=== PATIENT | male | born 1960 | race Caucasian/White ===

== ENCOUNTER 2016-08-01 07:38 | Outpatient (CLI) | payer OTHER ==
[2016-08-01] MEDS ORDERED: GADOBUTROL 10 MMOL/10 ML VIAL IVP ONE (08:31)
== END 2016-08-01 07:39 | disposition home or self-care (01) ==
DX: R26.89 Other abnormalities of gait and mobility (principal); Z91.81 History of falling
CPT/HCPCS: 70553; A9585

== ENCOUNTER 2017-12-28 14:48 | Emergency (ER) | payer OTHER ==
--- NOTE | 2017-12-28 15:21 | ED Physician Documentation ---
PD HPI ABD PAIN - Stated complaint Stated Complaint: RT LOWER BACK PAIN - Chief complaint Chief Complaint: General - History obtained from History obtained from: Patient - History of Present Illness Timing - onset: How many days ago (3) Timing - duration: Days (3) Timing - details: Gradual onset, Still present, Waxing and waning Quality: Aching, Sharp, Pain Location: RLQ Radiation: Other (right testicle area), Right flank Improved by: No: Eating, Position, Meds Worsened by: No: Eating, Position Associated symptoms: Nausea. No: Fever, Vomiting, Diarrhea, Constipation, Dysuria Similar symptoms before: Diagnosis (similar to kidney stones in the past (2-3 prior ones, each passed with meds only)) Recently seen: Not recently seen Review of Systems Constitutional: denies: Fever, Chills, Myalgias Nose: denies: Rhinorrhea / runny nose, Congestion Throat: denies: Sore throat Cardiac: denies: Chest pain / pressure Respiratory: denies: Cough GI: reports: Abdominal Pain, Nausea. denies: Constipation, Diarrhea : reports: Hematuria (few days ago for just that day). denies: Dysuria, Frequency Skin: denies: Rash, Lesions PD PAST MEDICAL HISTORY - Past Medical History Cardiovascular: None Respiratory: None Neuro: None Endocrine/Autoimmune: None : Kidney stones - Present Medications Home Medications: Ambulatory Orders Medication Instructions Recorded Confirmed Dexamethasone [Decadron] 4 mg PO DAILY #5 tablet 12/28/17 Naproxen [Naprosyn] 500 mg PO BID PRN #20 tablet 12/28/17 Ondansetron Odt [Zofran] 4 mg TL Q6H PRN #15 tablet 12/28/17 Oseltamivir [Tamiflu] 75 mg PO BID #10 capsule 12/28/17 Oxycodone HCl/Acetaminophen 1 each PO Q6H PRN #20 tablet 12/28/17 [Percocet 5-325 mg Tablet] - Allergies Allergies/Adverse Reactions: Allergies Allergy/AdvReac Type Severity Reaction Status Date / Time No Known Drug Allergies Allergy Verified 12/28/17 15:11 - Family History Family history: reports: Non contributory. denies: Aortic aneursym, Aortic dissection PD ED PE NORMAL - Vitals Vital signs reviewed: Yes - General General: Alert and oriented X 3, Well developed/nourished, Other (appears in pain) - Neck Neck: Supple, no meningeal sign, No adenopathy - Cardiac Cardiac: RRR, No murmur - Respiratory Respiratory: Clear bilaterally - Abdomen Abdomen: Normal bowel sounds, Soft, Non distended, No organomegaly, Other (some tender RLQ without guarding. No inguinal nodes nor hernias. Scrotum not tender. ) - Back Back: Other (moderate right CVA tender. ) - Derm Derm: Normal color, Warm and dry, No rash - Extremities Extremities: Normal ROM s pain, No edema, No calf tenderness / cord - Neuro Neuro: Alert and oriented X 3, No motor deficit, Normal speech Results - Vitals Vitals: Vital Signs - 24 hr 12/28/17 12/28/17 15:04 18:02 Temperature 36.9 C Heart Rate 100 83 Respiratory 20 16 Rate Blood Pressure 163/100 H 160/107 H O2 Saturation 94 96 Oxygen O2 Source Room air - Labs Labs: Laboratory Tests 12/28/17 12/28/17 15:57 17:17 Sodium 136 Potassium 3.9 Chloride 102 Carbon Dioxide 26 Anion Gap 8.0 BUN 12 Creatinine 1.7 H Estimated GFR (MDRD) 42 L Glucose 113 H Calcium 9.3 Urine Color LT. YELLOW Urine Clarity HAZY Urine pH 6.0 Ur Specific [place] 1.015 Urine Protein NEGATIVE Urine Glucose (UA) NEGATIVE Urine Ketones NEGATIVE Urine Occult Blood SMALL H Urine Nitrite NEGATIVE Urine Bilirubin NEGATIVE Urine Urobilinogen 0.2 (NORMAL) Ur Leukocyte Esterase NEGATIVE Urine RBC 0-5 Urine WBC 0-3 Ur Squamous Epith Cells NONE SEEN Urine Bacteria None Seen Ur Microscopic Review INDICATED Urine Culture Comments NOT INDICATED - Rads (name of study) KUB CT Radiology: Prelim report reviewed (6x9 mm stone proximal right urter with moderate hydronephrosis. ), EMP read contemporaneously PD MEDICAL DECISION MAKING - ED course Complexity details: reviewed results (larger stone 6x9 mm at high ureter. He is comfortable now, but it is a snug fit for the size of it, so will refer to Urology. ), re-evaluated patient (pain much improved after IV meds. Feeling okay at this time. ), considered differential (sounds likely stone but pain has been high/flank for few days, so can get CT to evaluate. ), d/w patient - Sepsis Event Vital Signs: Vital Signs - 24 hr 12/28/17 12/28/17 15:04 18:02 Temperature 36.9 C Heart Rate 100 83 Respiratory 20 16 Rate Blood Pressure 163/100 H 160/107 H O2 Saturation 94 96 Oxygen O2 Source Room air Departure - Departure Disposition: 01 Home, Self Care Clinical Impression: Right sided abdominal pain, Ureterolithiasis Condition: Stable Record reviewed to determine appropriate education?: Yes Instructions: ED Stone Renal W Colic Follow-Up: ALICE GREENE [Primary Care Provider] - [facility] [Provider Group] Mariann Gee MD [Physician No Access] - Prescriptions: Dexamethasone [Decadron] 4 mg PO DAILY #5 tablet Naproxen [Naprosyn] 500 mg PO BID PRN #20 tablet PRN Reason: Pain Ondansetron Odt [Zofran] 4 mg TL Q6H PRN #15 tablet PRN Reason: Nausea / Vomiting Oseltamivir [Tamiflu] 75 mg PO BID #10 capsule Oxycodone HCl/Acetaminophen [Percocet 5-325 mg Tablet] 1 each PO Q6H PRN #20 tablet PRN Reason: Pain Comments: Drink lots of fluids. You do not need to over hydrate however. Use naproxen or ibuprofen 2-3 times a day for initial pain and inflammation. Decadron daily for 5 days for inflammation of the ureter as well. Tamsulosin daily to try to relax the ureter and allow better passage of the stone. This is of some benefit on some studies for stones of this size. Ondansetron if needed for nausea. Tylenol or Percocet if needed for pain. Contact urology Saturday if it does not feel the stone is passed. It is a 9 mm stone so is a bit snug on getting through the ureter and might need removal. However call urology for follow-up appointment regarding options. Return to the ER if worse symptoms. Discharge Date/Time: 12/28/17 18:20
[2017-12-28] MEDS ORDERED: KETOROLAC 60 MG/2 ML VIAL IVP STA (15:33)
[2017-12-28] MEDS ORDERED: SODIUM CHLORIDE 0.9% 1,000 ML IV ONE (15:33)
[2017-12-28] MEDS ORDERED: LIDOCAINE-MPF 2% 6 ML in SODIUM CHLORIDE 0.9% 50 ML IV STA (15:33)
[2017-12-28] MEDS ORDERED: MORPHINE 10 MG/ML VIAL IVP STA (15:34)
[2017-12-28 16:15] LABS: CALCIUM 9.3 mg/dL (8.5-10.3); CREATININE 1.7 mg/dL (0.6-1.2)
--- NOTE | 2017-12-28 16:34 | CT Preliminary Report ---
Exam: CT KUB IMPRESSION: 1. Moderate right hydronephrosis being caused by a right proximal ureteral calculus measuring 6 x 6 x 9 mm. Right perinephric stranding is greater than the left. A few tiny 1 mm calculi seen in lower po le right kidney. 2. Dryg-rs-exblriud colonic diverticulosis. 3. Normal appendix. [facility] SITE ID: [id number]
--- NOTE | 2017-12-28 16:41 | CT Report ---
EXAM: CT ABDOMEN AND PELVIS (CT KUB) EXAM DATE: 12/28/2017 04:12 PM. CLINICAL HISTORY: Right flank pain for 2 days. COMPARISONS: None. TECHNIQUE: Routine axial helical CT imaging was performed through the abdomen and pelvis without IV c ontrast. Reconstructions: Coronal and sagittal. In accordance with CT protocol optimization, one or more of the following dose reduction techniques w ere utilized for this exam: automated exposure control, adjustment of mA and/or KV based on patient s ize, or use of iterative reconstructive technique. FINDINGS: Lung bases: No acute findings. Liver: Unremarkable. Gallbladder: Unremarkable. Bile ducts: Unremarkable. Pancreas: Unremarkable. Spleen: Unremarkable. Adrenals: Unremarkable. Kidneys: Moderate right hydronephrosis being caused by a right proximal ureteral calculus measuring 6 x 6 x 9 mm. Right perinephric stranding is greater than the left. A few tiny 1 mm calculi seen in lo wer pole of the right kidney. No left renal calculi or hydronephrosis. Bowel: No acute bowel findings. Mild diffuse colonic diverticulosis. More moderate sigmoid diverticul osis. Normal appendix. No free fluid or free air. No abscess. No evidence for bowel obstruction. Pelvis: The bladder and remaining pelvic organs appear unremarkable. Bones: No acute bone findings. Vascular structures: No acute findings. IMPRESSION: 1. Moderate right hydronephrosis being caused by a right proximal ureteral calculus measuring 6 x 6 x 9 mm. Right perinephric stranding is greater than the left. A few tiny 1 mm calculi seen in lower po le right kidney. 2. Mild to moderate colonic diverticulosis. 3. Normal appendix. [facility] Referring Provider Line: [phone] SITE ID: [id number]
[2017-12-28] MEDS ORDERED: LIDOCAINE-MPF 2% 6 ML in SODIUM CHLORIDE 0.9% 50 ML IV SCH (17:00)
[2017-12-28 18:10] VITALS: BP 160/107
[2017-12-28 18:22] LABS: BILIRUBIN,URINE NEGATIVE (NEGATIVE); GLUCOSE, URINE (UA) NEGATIVE (NEGATIVE); KETONES,URINE (UA) NEGATIVE (NEGATIVE); LEUKOCYTE ESTERASE, URINE NEGATIVE (NEGATIVE); NITRITE,URINE NEGATIVE (NEGATIVE); OCCULT BLOOD,URINE SMALL (NEGATIVE); PROTEIN,URINE NEGATIVE (NEGATIVE); UROBILINOGEN,URINE 0.2 (NORMAL) E.U./dL (NORMAL)
[2017-12-28 18:27] LABS: CLARITY,URINE HAZY (CLEAR)
[2017-12-28 18:35] LABS: BACTERIA,URINE None Seen /HPF (None Seen); RBC,URINE 0-5 /HPF (0-5); SQUAMOUS EPITHELIAL CELL,UR NONE SEEN (<= Few)
== END 2017-12-28 18:20 | disposition home or self-care (01) ==
LOC: ED 14:48
DX: N13.2 Hydronephrosis with renal and ureteral calculous obstruction (principal); Z87.442 Personal history of urinary calculi; K57.30 Diverticulosis of large intestine without perforation or abscess without bleeding
CPT/HCPCS: 36415; 74176; 80048; 81001; 96365; 96375; 99283; 99284; J7040; 81003; 87086